=== PATIENT | male | born 1955 | race Caucasian/White ===

== ENCOUNTER 2016-11-11 19:57 | Emergency (ER) | payer MEDICARE ==
[~2016-11-11] VITALS: Ht 185.4 cm; Wt 145.0 kg
[2016-11-11 19:58] VITALS: BP 199/91; PULSE 84; RESP 16; TEMP 97.9; O2SAT 99
[2016-11-11 22:04] VITALS: BP 142/69; PULSE 79; RESP 21; O2SAT 97
[2016-11-11] MEDS ORDERED: ATEN50TA PO (22:16)
[2016-11-11] MEDS ORDERED: WARF-23 PO (22:16)
[2016-11-11] MEDS ORDERED: ROSU10 PO (22:16)
[2016-11-11] MEDS ORDERED: CYCL1TAB29 PO (22:16)
[2016-11-11] MEDS ORDERED: AMLO5TAB2 PO (22:16)
[2016-11-11] MEDS ORDERED: SERT-132 PO (22:16)
[2016-11-11] MEDS ORDERED: AMBI10TA PO (22:16)
[2016-11-11 22:17] VITALS: RESP 18; O2SAT 97
--- NOTE | 2016-11-11 22:19 | PD ---
HPI Chief Complaint: Edema Time Seen by Provider: 21:55 Travel History International Travel<30 days: No Contact w/Intl Traveler<30days: No Traveled to known affect area: No History of Present Illness HPI The patient is a 61 year old male who presents to the [facility] emergency department with a history of increased swelling in the left leg with increased pain in the posterior thigh and back of knee that began a few days ago. 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 He uses a wheelchair for mobility. The patient reports that he has a history of left lower extremity DVT in 2015. He reports that he is on Coumadin, however he has not had his INR checked in the last month due to a recent change in his home health. He is followed by [facility]. His home health nurse sent him in for evaluation to rule out a thrombosis. His PCP is Dr. Ramsey. On review of systems, the patient denies any recent fevers cough, congestion, neck pain, chest pain, worsening shortness of breath, abdominal pain, vomiting, diarrhea, urinary symptoms, or neurologic symptoms. 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 Cardiovascular Problems: Yes (DVT) High Cholesterol: Yes Cerebrovascular Accident: Yes Diabetes: Yes Patient Takes Glucophage: Yes Hypertension: Yes Immunizations Current: Yes Past Surgical History Narrative Surgical The patient's past surgical history is significant for intracranial hemorrhage at 20 years of age, aneurysmal clipping done in 1974, arthroscopic sx left knee. Social History Alcohol Use: No Tobacco Use: No (quit at 40 years of age) Substance Use: No Allergies-Medications (Allergen,Severity, Reaction): Coded Allergies: Erythromycin (Verified Allergy, Intermediate, 11/11/16) purple blotches Reported Meds & Prescriptions Reported Meds & Active Scripts Active Reported Crestor (Rosuvastatin Calcium) 10 Mg Tab Unknown Dose PO HS Amlodipine (Amlodipine Besylate) 5 Mg Tab 5 Mg PO DAILY Flexeril (Cyclobenzaprine HCl) 10 Mg Tab 10 Mg PO TID PRN Sertraline (Sertraline HCl) 50 Mg Tab 50 Mg PO DAILY Atenolol 50 Mg Tab 50 Mg PO DAILY Ambien (Zolpidem Tartrate) 10 Mg Tab 10 Mg PO HS PRN Warfarin 5 Mg Tab 5 Mg PO DAILY@1600 Review of Systems Except as stated in HPI: all other systems reviewed are Neg General / Constitutional: No: Fever Eyes: No: Visual changes HENT: No: Headaches Cardiovascular: Positive: Dyspnea on exertion, Edema, No: Chest Pain or Discomfort Respiratory: Positive: Shortness of Breath (chronic) Gastrointestinal: No: Abdominal Pain Genitourinary: No: Dysuria Musculoskeletal: Positive: Myalgias, Edema, No: Pain Skin: No Rash Neurologic: Positive: Focal Abnormalities (left sided residual weakness from prior stroke.), No: Weakness, Change in Mentation, Slurred Speech, Sensory Disturbance Psychiatric: No: Depression Endocrine: No: Polydipsia Hematologic/Lymphatic: No: Easy Bruising Physical Exam Narrative General: The patient is well-developed well-nourished male in no acute distress. Head and Neck exam: Head is normocephalic atraumatic. Eyes: EOMI, pupils are equal round and reactive to light. Nose: Midline septum with pink mucous membranes Mouth: Dentition unremarkable. Moist mucus membranes. Posterior oropharynx is not erythematous. No tonsillar hypertrophy. Uvula midline. Airway patent. Neck: No palpable lymphadenopathy. No nuchal rigidity. No thyromegaly. Cardiovascular: Regular rate and rhythm without murmurs, gallops, or rubs. Lungs: Clear to auscultation bilaterally. No wheezes, rhonchi, or rales. Abdomen: Soft, without tenderness to palpation in all 4 quadrants of the abdomen. No guarding, rebound, or rigidity. Normal bowel sounds are audible. No tenderness on palpation of McBurney's point. Negative [place] sign. Extremities: No clubbing or cyanosis. The patient has 2+ nonpitting edema of the left lower extremity, 1+ edema right lower extremity. 2+ pulses in all 4 extremities. The patient reports having pain with palpation along the popliteal fossa. No calf tenderness. Negative Hom[place] sign. No palpable cords. Back: No spinous process tenderness to palpation. No costovertebral angle tenderness to palpation. Neurologic Exam: At baseline with residual weakness of the left upper and left lower extremity with left facial droop. Skin Exam: No rash noted. Intact skin that is warm and dry. Data Data Last Documented VS Vital Signs Date Time Temp Pulse Resp B/P Pulse Ox O2 Delivery O2 Flow Rate FiO2 11/11/16:17 18 97 Room Air 11/11/16 22:04 79 142/69 11/11/16 19:58 97.9 Orders Electrocardiogram (11/11/16 22:06) Complete Blood Count With Diff (11/11/16 22:06) Comprehensive Metabolic Panel (11/11/16 22:06) Troponin I (11/11/16 22:) B-Type Natriuretic Peptide (11/11/16 22:) Prothrombin Time / Inr (Pt) (11/11/16 22:06) Act Partial Throm Time (Ptt) (11/11/16 22:06) Urinalysis - C+S If Indicated (11/11/16 22:) Magnesium (Mg) (11/11/16 22:06) Thyroid Stimulating Hormone (11/11/16 22:06) Chest, Single Ap (11/11/16 22:06) Iv Access Insert/Monitor (11/11/16 22:06) Ecg Monitoring (11/11/16 22:06) Oximetry (11/11/16 22:06) Us Leg Venous Doppler (11/11/16 22:06) Labs Laboratory Tests Test 11/11/16 11/11/16 21:40 22:00 Urine Color LIGHT-YELLOW Urine Turbidity CLEAR Urine pH 7.0 Urine Specific [place] 1.021 Urine Protein 30 mg/dL Urine Glucose (UA) 1000 mg/dL Urine Ketones NEG mg/dL Urine Occult Blood NEG Urine Nitrite NEG Urine Bilirubin NEG Urine Urobilinogen LESS THAN 2.0 MG/DL Urine Leukocyte Esterase NEG Urine RBC 2 /hpf Urine WBC 1 /hpf Urine Squamous Epithelial <1 /hpf Cells Urine Mucus FEW /lpf Microscopic Urinalysis Comment CULT NOT INDICATED White Blood Count 9.9 TH/MM3 Red Blood Count 5.45 MIL/MM3 Hemoglobin 14.8 GM/DL Hematocrit 46.2 % Mean Corpuscular Volume 84.7 FL Mean Corpuscular Hemoglobin 27.2 PG Mean Corpuscular Hemoglobin 32.1 % Concent Red Cell Distribution Width 14.9 % Platelet Count 259 TH/MM3 Mean Platelet Volume 8.8 FL Neutrophils (%) (Auto) 62.7 % Lymphocytes (%) (Auto) 25.8 % Monocytes (%) (Auto) 9.4 % Eosinophils (%) (Auto) 1.6 % Basophils (%) (Auto) 0.5 % Neutrophils # (Auto) 6.2 TH/MM3 Lymphocytes # (Auto) 2.5 TH/MM3 Monocytes # (Auto) 0.9 TH/MM3 Eosinophils # (Auto) 0.2 TH/MM3 Basophils # (Auto) 0.0 TH/MM3 CBC Comment DIFF FINAL Differential Comment Prothrombin Time 21.3 SEC Prothromb Time International 1.9 RATIO Ratio Activated Partial 32.9 SEC Thromboplast Time Sodium Level 138 MEQ/L Potassium Level 3.4 MEQ/L Chloride Level 103 MEQ/L Carbon Dioxide Level 26.4 MEQ/L Anion Gap 9 MEQ/L Blood Urea Nitrogen 15 MG/DL Creatinine 0.79 MG/DL Estimat Glomerular Filtration 100 ML/MIN Rate Random Glucose 234 MG/DL Calcium Level 8.6 MG/DL Magnesium Level 1.7 MG/DL Total Bilirubin 0.3 MG/DL Aspartate Amino Transf 16 U/L (AST/SGOT) Alanine Aminotransferase 25 U/L (ALT/SGPT) Alkaline Phosphatase 72 U/L Troponin I 0.02 NG/ML B-Type Natriuretic Peptide 12 PG/ML Total Protein 7.1 GM/DL Albumin 2.9 GM/DL Thyroid Stimulating Hormone 2.660 uIU/ML 3rd Gen [facility] Medical Decision Making Medical Screen Exam Complete: Yes Emergency Medical Condition: Yes Medical Record Reviewed: Yes Interpretation(s) Last Impressions Lower Extremity Ultrasound 11/11/162205 Signed Impressions: Service Date/Time: Friday, November 11, 2016 22:58 - CONCLUSION: No evidence of DVT of the left lower extremity. Diffuse subcutaneous edema. Saud Mims MD Chest X-Ray 11/11/162205 Signed Impressions: Service Date/Time: Friday, November 11, 2016 22:11 - CONCLUSION: No acute disease. Tom Turner MD FACR Differential Diagnosis DVT, versus peripheral edema related to valvular abnormality of the veins, versus hypoalbuminemia, versus hypothyroid disorder with myxedema Narrative Course During the course of the patients emergency department visit, the patients history, examination, and differential diagnosis were reviewed with the patient. The patient had IV access obtained and blood work sent for analysis. The patient was placed on a residential monitor with oximetry and blood pressure monitoring. An ECG was ordered. The patient has an ECG that shows a sinus rhythm with an occasional premature ventricular complex. No other acute abnormality. T waves are inverted in lead 3, no acute ST segment elevation or depression. An ultrasound of the left lower extremity was ordered. A chest x- ray was ordered. The patients laboratory studies were reviewed and remarkable for a white count of 9.9, hemoglobin 14.8, platelets 259 with 9.4 monocytes. CMP is remarkable for potassium 3.4 which was supplemented orally, glucose 234, troponin I 0.02, BNP is 12, albumin 2.9 which could explain the patient's lower extremity edema due to hypoalbuminemia, TSH 2.66, INR 1.9, urinalysis shows 30 protein, glucose 1000 Radiology studies were reviewed and remarkable for an ultrasound of the left lower extremity that shows no evidence of DVT. Chest x-ray shows no acute abnormality. The patient was instructed to increase the protein in his diet. He was instructed to continue on the Coumadin as previously prescribed. The patient is resting comfortably and feels better, is alert and in no distress. The patients results and examination findings were discussed with the patient. The repeat examination is unremarkable and benign. The history, exam, diagnostic testing, and current condition do not suggest any significant pathology to warrant further testing, continued ED treatment, admission, or surgical evaluation at this point. The vital signs have been stable. The patient does not have uncontrollable pain, intractable vomiting, or other significant symptoms. The patient's condition is stable and appropriate for discharge. The patient will pursue further outpatient evaluation with a primary care physician or other designated or consulting physician as indicated in the discharge instructions. The patient expressed understanding and was agreeable with this plan. Diagnosis Primary Impression: Lower extremity edema Referrals: Primary Care Physician 3 days Patient Instructions: General Instructions, Leg Edema (ED) Additional Instructions: The patient is instructed to increase her protein in her diet. Med/Other Pt SpecificInfo: No Change to Meds Disposition: 01 DISCHARGE HOME Condition: Stable Maye Lara MD Nov 11, 2016 22:19
--- NOTE | 2016-11-11 22:40 | RADRPT ---
EXAM DATE/TIME: 11/11/2016 22:11 [facility] COMPARISON: No previous studies available for comparison. INDICATIONS : Evaluate lung status. Left leg swelling. MEDICAL HISTORY : Hypercholesterolemia. Hypertension DVT, Diabetes. SURGICAL HISTORY : None. ENCOUNTER: Initial ACUITY: 2 days PAIN SCORE: 0/10 LOCATION: Bilateral chest FINDINGS: A single view of the chest demonstrates the lungs to be symmetrically aerated without evidence of mas s, infiltrate or effusion. The cardiomediastinal contours are unremarkable. Osseous structures are intact. CONCLUSION: No acute disease. Tom Turner MD FACR on November 11, 2016 at 22:38 Board Certified Radiologist. This report was verified electronically.
[2016-11-11 22:46] LABS: AUTOMATED NEUTROPHIL # 6.2 TH/MM3 (1.8-7.7); BASOPHIL % 0.5 % (0.0-2.0); EOSINOPHIL # 0.2 TH/MM3 (0-0.4); EOSINOPHIL % 1.6 % (0.0-4.0); HEMATOCRIT 46.2 % (39.0-51.0); HEMO FLAGS DIFF FINAL; LYMPH % 25.8 % (9.0-44.0); LYMPHOCYTE # 2.5 TH/MM3 (1.0-4.8); MEAN CELL VOLUME 84.7 FL (80.0-100.0); MEAN CORPUSCULAR HEMOGLOBIN 27.2 PG (27.0-34.0); MEAN CORPUSCULAR HGB CONC 32.1 % (32.0-36.0); MONO % 9.4 % (0.0-8.0); NEUT % 62.7 % (16.0-70.0); PLATELET COUNT 259 TH/MM3 (150-450); RED BLOOD COUNT 5.45 MIL/MM3 (4.50-5.90); RED CELL DISTRIBUTION WIDTH 14.9 % (11.6-17.2); WHITE BLOOD COUNT 9.9 TH/MM3 (4.0-11.0)
[2016-11-11 22:51] LABS: BLOOD, URINE NEG (NEG); GLUCOSE,URINE 1000 mg/dL (NEG); KETONE, URINE NEG (NEG); MUCUS URINE FEW /lpf (OCC); NITRITE,URINE NEG (NEG); SQUAMOUS EPITHELIAL CELL URINE <1 /hpf (0-5); URINE COLOR LIGHT-YELLOW (YELLW/STRAW)
[2016-11-11 22:55] LABS: COMMENT (UR) CULT NOT INDICATED; CULTURE IF INDICATED CULT NOT INDICATED
[2016-11-11 22:59] LABS: APTT (PATIENT) 32.9 SEC (24.3-30.1); INTERNATIONAL NORMALIZED RATIO 1.9 RATIO; PROTHROMBIN TIME - PATIENT 21.3 SEC (9.8-11.6)
[2016-11-11 23:06] LABS: ANION GAP 9 MEQ/L (5-15); AST (GOT) 16 U/L (15-37); BICARBONATE 26.4 MEQ/L (21.0-32.0); BLOOD UREA NITROGEN 15 MG/DL (7-18); CHLORIDE 103 MEQ/L (98-107); GLOMERULAR FILTRATION RATE 100 ML/MIN (>89); MAGNESIUM 1.7 MG/DL (1.5-2.5); POTASSIUM 3.4 MEQ/L (3.5-5.1); SODIUM (NA) 138 MEQ/L (136-145)
[2016-11-11 23:07] LABS: ALT (GPT) 25 U/L (12-78)
[2016-11-11 23:17] LABS: ALKALINE PHOSPHATASE 72 U/L (45-117); TOTAL BILIRUBIN ADULT 0.3 MG/DL (0.2-1.0)
--- NOTE | 2016-11-12 | RADRPT ---
EXAM DATE/TIME: 11/11/2016 22:58 [facility] COMPARISON: No previous studies available for comparison. INDICATIONS : Left leg swelling. MEDICAL HISTORY : Hypercholesterolemia. Hypertension. Cerebrovascular accident. Diabetes. Deep vein thrombosis. SURGICAL HISTORY : None. ENCOUNTER: Initial ACUITY: 1 week PAIN SCORE: 7/10 LOCATION: Left leg. TECHNIQUE: Venous ultrasound of the leg was performed from the inguinal ligament to the proximal calf. Real-faustino e, color Doppler and spectral tracing, compression and augmentation techniques were used. FINDINGS: There is normal compressibility of the deep venous system from the inguinal region to the proximal ca lf. No echogenic clot is seen in the lumen of the common femoral, femoral, popliteal, and posterior tibial veins. There is a normal response of the venous system to proximal and distal augmentation an d respiration. Diffuse subcutaneous edema present. No organized/drainable fluid demonstrated. CONCLUSION: No evidence of DVT of the left lower extremity. Diffuse subcutaneous edema. Saud Mims MD on November 11, 2016 at 23:58 Board Certified Radiologist. This report was verified electronically.
--- NOTE | 2016-11-12 09:48 | EKG ---
Date Performed: 11/11/2016 Time Performed: 21:48:56 PTAGE: 61 years EKG: Sinus rhythm WITH OCCASIONAL VENTRICULAR PREMATURE COMPLEXES BORDERLINE ECG NO PREVIOUS TRACING DOCTOR: Dylan Lara Interpretating Date/Time 11/12/2016 09:46:37
== END 2016-11-12 01:10 | disposition home or self-care (01) ==
LOC: NEPC 19:57
DX: R60.9 Edema, unspecified (principal); E11.9 Type 2 diabetes mellitus without complications; I10 Essential (primary) hypertension; E78.5 Hyperlipidemia, unspecified; I69.952 Hemiplegia and hemiparesis following unspecified cerebrovascular disease affecting left dominant side; J44.9 Chronic obstructive pulmonary disease, unspecified; E78.00 Pure hypercholesterolemia, unspecified; Z86.718 Personal history of other venous thrombosis and embolism; Z79.899 Other long term (current) drug therapy; Z79.01 Long term (current) use of anticoagulants
CPT/HCPCS: 71010; 80053; 81001; 83735; 83880; 84443; 84484; 85025; 85610; 85730; 93005; 93971; 99285